=== PATIENT | female | born 1945 | race Caucasian/White ===

== ENCOUNTER 2019-09-11 15:33 | Inpatient (IN) | payer MEDICARE ==
[~2019-09-11] VITALS: Ht 165.1 cm; Wt 56.4 kg
[2019-09-11 16:51] LABS: BASOPHILS ABSOLUTE AUTO 0.06 K/mm3 (0.00-0.23); BASOPHILS PERCENT AUTO 1 % (0-2); EOSINOPHILS ABSOLUTE AUTO 0.02 K/mm3 (0.00-0.68); EOSINOPHILS PERCENT AUTO 0 % (0-6); Hematocrit 43.3 % (33.0-51.0); Hemoglobin 14.4 g/dL (11.5-16.0); IMMATURE GRAN ABSOLUTE AUTO 0.03 K/mm3 (0.00-0.10); IMMATURE GRAN PERCENT AUTO 0 % (0-1); LYMPHOCYTES ABSOLUTE AUTO 1.13 K/mm3 (0.84-5.20); LYMPHOCYTES PERCENT AUTO 12 % (21-46); MONOCYTES ABSOLUTE AUTO 0.98 K/mm3 (0.16-1.47); MONOCYTES PERCENT AUTO 10 % (4-13); Mean Corpuscular HGB 29.9 pg (26.0-34.0); Mean Corpuscular HGB Conc 33.3 g/dL (31.5-36.5); Mean Corpuscular Volume 90 fL (80-100); Mean Platelet Volume 9.1 fL (9.1-12.4); NEUTROPHILS ABSOLUTE AUTO 7.26 K/mm3 (1.96-9.15); NEUTROPHILS PERCENT AUTO 77 % (41-73); Platelet Count 574 K/mm3 (150-400); RDW Coefficient Variation 19.1 % (11.7-14.2); RDW Standard Deviation 60.2 fL (35.1-46.3); Red Blood Cell Count 4.81 M/mm3 (3.80-5.20); White Blood Cell Count 9.48 K/mm3 (4.00-11.30)
[2019-09-11 17:14] LABS: Alanine Aminotransfer (ALT/SGP 83 U/L (12-78); Albumin, Blood 2.5 g/dL (3.4-5.0); Albumin/Globulin Ratio 0.5 (0.8-1.8); Alk Phos 844 U/L (50-136); Anion Gap 11 mmol/L (6-16); Aspartate Aminotrans (AST/SGOT 405 U/L (12-37); Bilirubin, Total 2.1 mg/dL (0.1-1.0); Blood Urea Nitrogen 15 mg/dL (8-24); Bun/Creatinine Ratio 17.3 (12.0-20.0); CO2, Blood 22 mmol/L (21-32); Calcium, Blood 9.1 mg/dL (8.5-10.1); Chloride, Blood 103 mmol/L (98-108); Creatinine, Blood 0.87 mg/dL (0.40-1.00); Globulin, Blood 5.1 g/dL (2.2-4.0); Glomerular Filtration Rate >60 (60-); Glucose, Blood 105 mg/dL (70-99); Potassium, Blood 3.4 mmol/L (3.5-5.5); Sodium, Blood 136 mmol/L (136-145); Total Protein, Blood 7.6 g/dL (6.4-8.2)
[2019-09-11 20:10] LABS: Source, Urine Clean Catch
[2019-09-11 20:13] LABS: Bilirubin, Urine Neg (Neg); Blood, Urine 1+ (Neg); Glucose Qualitative, Urine Neg (Neg); Ketones, Urine Neg (Neg); Leukocyte Esterase, Urine 1+ (Neg); Nitrite, Urine Neg (Neg); Protein, Urine 1+ (Neg); Urobilinogen, Urine 2+ (Normal)
[2019-09-11 20:14] LABS: International Normalized Ratio 1.04; Prothrombin Time Results 11.1 Sec (9.7-11.5)
[2019-09-11 20:18] LABS: Appearance, Urine Hazy (Clear); Color, Urine Amber (P-Yellow)
[2019-09-11 20:19] LABS: Bacteria Few /hpf; Squamous Epithelial Cells Few /hpf (Few); White Blood Cells, Urine 25-50 /hpf (0-5)
[2019-09-11] MEDS ORDERED: IBUP600 PO (22:46)
--- NOTE | 2019-09-11 22:55 | NUR ---
PATIENT ARRIVED FROM ER VIA GURNEY, AWAKE AND ALERT ACCOMPANIED BY FAMILY, TRANSFERRED TO UNIT BED VIA SLIP SHEET BY 4 STAFF. HEART RATE TACHY AT 105, OTHERWISE ALL VITALS WNL. PATIENT IS MILDLY IRRITABLE, SHOWING VERBAL INTOLERANCE OF INTERVENTIONS, BUT ULTIMATELY COMPLIANT WITH ALL. PATIENT C/O MILD TO MODERATE PAIN TO ABDOMEN T/O SHIFT, AND WAS TREATED TO HER STATED RELIEF PER EMAR, AND UNIT PROTOCOL. WILL CONTINUE TO MONITOR AND PROVIDE CARE
[2019-09-12 03:50] LABS: BASOPHILS ABSOLUTE AUTO 0.07 K/mm3 (0.00-0.23); BASOPHILS PERCENT AUTO 1 % (0-2); EOSINOPHILS ABSOLUTE AUTO 0.05 K/mm3 (0.00-0.68); EOSINOPHILS PERCENT AUTO 1 % (0-6); Hematocrit 36.7 % (33.0-51.0); Hemoglobin 12.2 g/dL (11.5-16.0); IMMATURE GRAN ABSOLUTE AUTO 0.06 K/mm3 (0.00-0.10); IMMATURE GRAN PERCENT AUTO 1 % (0-1); LYMPHOCYTES ABSOLUTE AUTO 1.46 K/mm3 (0.84-5.20); LYMPHOCYTES PERCENT AUTO 15 % (21-46); MONOCYTES ABSOLUTE AUTO 1.37 K/mm3 (0.16-1.47); MONOCYTES PERCENT AUTO 14 % (4-13); Mean Corpuscular HGB 29.7 pg (26.0-34.0); Mean Corpuscular HGB Conc 33.2 g/dL (31.5-36.5); Mean Corpuscular Volume 89 fL (80-100); Mean Platelet Volume 8.9 fL (9.1-12.4); NEUTROPHILS ABSOLUTE AUTO 6.82 K/mm3 (1.96-9.15); NEUTROPHILS PERCENT AUTO 69 % (41-73); Platelet Count 503 K/mm3 (150-400); RDW Standard Deviation 60.2 fL (35.1-46.3); Red Blood Cell Count 4.11 M/mm3 (3.80-5.20); White Blood Cell Count 9.83 K/mm3 (4.00-11.30)
[2019-09-12 04:09] LABS: Alanine Aminotransfer (ALT/SGP 68 U/L (12-78); Albumin, Blood 2.1 g/dL (3.4-5.0); Albumin/Globulin Ratio 0.5 (0.8-1.8); Alk Phos 698 U/L (50-136); Anion Gap 9 mmol/L (6-16); Aspartate Aminotrans (AST/SGOT 325 U/L (12-37); Bilirubin, Total 1.5 mg/dL (0.1-1.0); Blood Urea Nitrogen 14 mg/dL (8-24); Bun/Creatinine Ratio 20.2 (12.0-20.0); CO2, Blood 21 mmol/L (21-32); Calcium, Blood 8.5 mg/dL (8.5-10.1); Chloride, Blood 106 mmol/L (98-108); Creatinine, Blood 0.69 mg/dL (0.40-1.00); Globulin, Blood 4.2 g/dL (2.2-4.0); Glomerular Filtration Rate >60 (60-); Glucose, Blood 89 mg/dL (70-99); Potassium, Blood 3.6 mmol/L (3.5-5.5); Sodium, Blood 136 mmol/L (136-145); Total Protein, Blood 6.3 g/dL (6.4-8.2)
--- NOTE | 2019-09-12 07:46 | NUR ---
SHIFT SUMMARY PATIENT C/O MILD/MODERATE DISCOMFORT "NOT NECESSARILY PAIN" A NUMBER OF TIMES T/O SHIFT, FOR WHICH SHE RECEIVED MEDICATION PER EMAR, STATING RELIEF EACH TIME. PATIENT'S ABDOMEN REMAINED FIRM, MILDLY DISTENDED, AND OFTEN TENDER TO TOUCH. VITAL SIGNS REMAINED STABLE AND WITHIN NORMAL LIMITS OUTSIDE OF HEART RATE TACHY IN 90'S. PATIENT DISPLAYED MILD CONFUSION AT TIMES, FORGETFUL OF EARLIER EDUCATION AND INSTRUCTION. CARE AND REPORT PASSED TO ONCOMING SHIFT AT 0700, PATIENT AWAKE AND ALERT IN BED, CALL LIGHT IN REACH, BED ALARM ON.
--- NOTE | 2019-09-12 07:49 | NUR ---
pt laying in bed awake, slow to respond, easily startled, appears frail, she is a/ox3, but forgetful, reports back discomfort that is not new, lungs are dim, with some scattered wheeze, is on r/a, resp even and unlabored, no cough noted, or reported, hrr, running sr per monitor, see strip, no edema noted, ppp+1, cap refill <3sec, vs stable, low grade temp at 99.0, but room is warm and she has several blankets, iv site is power glide to gissel, is clear and patent, btx4, abd round firm, she states nontender at this time, voids without diff, last bm yesterday, skin c/w/d, tab gregg, call light in reach.
--- NOTE | 2019-09-12 11:07 | NUR ---
went to hang abx, pt just starts getting oob, asked her to allow nurse to help her, she states she doesn't need a walker and is ok. she was unsteady holding the wall, asked her not to get up without assist and bed alarm is activated, call light in reach.
--- NOTE | 2019-09-12 17:46 | NUR ---
JUST MEDICATED PT WITH ROXICODONE SHE IS COMPLAINING ABOUT 7/10 BACK PAIN, DOESN'T WANT TO MOVE IT HURTS HER STOMACH, SHE WAS MEDICATED EARLIER FOR ABD PAIN WITH FENTANYL, SHE REPORTS THIS IS GONE. PT HAS A POOR APPETITE, BUT DID EAT SOME PUDDING THIS EVENING. NO FURTHER CHANGES, CALL LIGHT IN REACH.
--- NOTE | 2019-09-13 05:57 | NUR ---
SHIFT SUMMARY: PATIENT HAD INCREASING CONFUSION AND WEAKNESS THIS SHIFT. PATIENT VERY AGGITATED C/O STAFF NOT PAYING ATTENTION TO HER AND TAKING 'HOURS' ANSWERING HER CALL, PATIENT THEN STATED THAT SHE WAS TIRED OF STAFF WAKING HER UP AND 'COMING AND GOING AT ALL TIMES'. 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 PATIENT VERY WEAK AND SOB WALKING ASSISTED TO THE BATHROOM. BED LOW AND LOCKED WITH EXIT ALARM ON, CALL LIGHT WITHIN REACH.
--- NOTE | 2019-09-13 08:39 | NUR ---
AM NOTE... ASSUMED CARE OF PT APROX 0700, PT IS A&Ox4 WITH MOMENTS OF CONFUSION PER NOC SHIFT REPORT. CURRENTLY PT IS ON SITTNG ON THE SIDE OF THE BED EATING BREAKFAST. PT DENIES PAIN AT THIS TIME. NO EDEMA NOTED ON ASSESSMENT. L/S CLEAR T/O DIM IN THE BASES PT IS ON RA WITH O2 SATS AT 91%. RR IS 22-24. PT DENIES SOB. PT DENIES ABD PAIN AT THIS TIME. CALL LIGHT IN REACH, WILL CONTINUE TO MONITOR
--- NOTE | 2019-09-13 17:11 | NUR ---
SHIFT SUMMARY. PT HAS MOMENTS OF CONFUSION AND FORGETFULLNESS THIS SHIFT, PT PULLED OUT HER IV AND POWERGLIDE, TELE AND SET OFF THE BEDALARM. NEW IV ACCESS WAS OBTAINED AND HEPARIN GTT WAS RESTARTED. PHARMACY WAS AWARE OF THE STOP IN THE INFUSION. PT HAS HAD MOMENTS OF AGRESSION AND IRRITATION WITH STAFF. WHEN PT HAD SET OFF THE BEDALARM PT WAS TRYING TO WALK TO THE BATHROOM WITH OUT ASSISTANCE, THE PCT HELPED HER TO THE BATHROOM, PER THE PCT PT STARTED TO FALL BACKWARDS, PCT WAS ABLE TO CATCH HER BUT PT WAS VERY UNSTABLE ON HER FEET. PT'S VS HAVE BEEN STABLE T/O SHIFT. PT WAS MEDICATED FOR PAIN ONCE THIS SHIFT PER EMAR. PT WAS TAKEN FOR CT SCAN OF THE HEAD, REPORT IS AVAILABLE AT THIS TIME. CALL LIGHT IN REACH, BEDALARM IS ON, WILL CONTINUE TO MONITOR UNTIL REPORT IS GIVEN TO ONCOMING RN.
--- NOTE | 2019-09-14 02:19 | NUR ---
HEPARIN DRIP STOPPED AT 0000 PER MD ORDERS
--- NOTE | 2019-09-14 04:48 | NUR ---
SHIFT SUMMARY: -PATIENT NONCOMPLIANT WITH SOME MEDICATIONS AND CARE INTERMITTENTLY. -PATIENT PAIN INTERMITTENT AND WORSENING THROUGHOUT SHIFT IN LOWER BACK AND ABDOMEN, MEDICATED PER EMAR -PATIENT WEAKER THIS SHIFT, USING BEDSIDE COMMODE INSTEAD OF BATHROOM -VSS, CALL LIGHT WITHIN REACH, BED LWO AND LOCKED WITH BED EXIT ALARM ON D/T CONFUSION
--- NOTE | 2019-09-14 09:09 | NUR ---
AM NOTE... ASSUMED CARE OF PT APROX 0700. PT IS A&Ox4 WITH MOMENTS OF CONFUSION AND IRRATABILITY. CURRENTLY PT IS PLEASENT AND COOPERATIVE. PT IS NPO FOR CT/US GUIDED LIVER BX. PT'S VS STABLE. PT C/O ABD PAIN AND BACK PAIN. HEPARIN GTT WAS STOPPED AT 2400 PER NOC RN. BED ALARM IS ON WILL CONTINUE TO MONITOR.
--- NOTE | 2019-09-14 18:27 | NUR ---
SHIFT SUMMARY. NO ACUTE NEGATIVE CHANGES NOTED THIS SHIFT. PT HAS BEEN MEDICATED FOR PAIN PER EMAR. PT'S VS HAVE BEEN STABLE. PT'S HEPARIN GTT IS TO BE STOPPED AT 2359 FOR LIVER BX TOMORROW 09/15. PT IS TO HAVE ANGIO DONE ON 09/16 PER PROVIDER. CALL LIGHT IN REACH BED ALARM ON WILL CONTINUE TO MONITOR UNTIL REPORT IS GIVEN TO ONCOMING RN.
--- NOTE | 2019-09-15 04:22 | NUR ---
SHIFT SUMMARY ADMITTED FOR OCCLUSION OF SUPERIOR MESENTERIC ARTERY. FULL CODE. LIVER BIOPSY SCHEDULED FOR TODAY, ANGIOGRAM OF MESENTERIC ARTERY SCHEDULED FOR 09/16. PT HAS BEEN NPO SINCE 2400 HRS. HEPARIN INFUSION HAS BEEN STOPPED, ORDERED. PT IS 1 ASSIST TO BATHROOM, RA. PERIODS OF CONFUSION. SHE LIVES ALONE. POSSIBLE CANCER METASTASIS TO LIVER. HX: SMOKER, ETOH, DEMENTIA, HTN, COPD, MALNUTRITION, HYPOKALEMIA.
--- NOTE | 2019-09-15 13:50 | NUR ---
Permission for care given to nursing clinical director at 13:45 09/15/2019.
--- NOTE | 2019-09-15 14:10 | NUR ---
PATIENT HAS JUST VOIDED FOR THE FIRST TIME THIS SHIFT AND ONLY PUT OUT 100CC. NOTIFIED DR DALLAS AT 1405 AND GIVEN NEW ORDERS FOR 1L NS BOLUS.
--- NOTE | 2019-09-15 14:59 | NUR ---
Initial Visit: Consult recieved for advanced care planning due to new diagnosis. 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 She underwent liver biopsy today. She has had a consult for Dr. Mcgee for cancer treatment. She has chronic alcoholism and will need to abstain from alcohol if she desires treatment for her cancer. So far, she agrees to this. Pt now reports 5/10 pain. States that it has been as high as a 9/10. Pain is in her belly. She denies headache, ringing in her ears, dizziness. Denies shortness of breath and anxiety. Pt reports that she would like to remain a full code status. She states, "my kids aren't ready for me to yet." She is appointing her middle daughter, Augustin, as her alternate decision maker. Discussed advance directives. Reviewed form with her. She seems only vaguely interested in the document and tells me again, "my kids aren't ready for me to go." Pt is oriented to herself, and reports she believes she is in "[facility]." Reoriented to place. Pt has no concners at this time. Will remain available. Spoke to nurse, she states that the pt is very forgetful.
--- NOTE | 2019-09-15 15:56 | NUR ---
SHIFT SUMMARY THE PATIENT WAS NPO FROM MIDNIGHT LAST NIGHT UNTIL HER LIVER BIOPSY THIS AM. PATIENT HAD NOT VOIDED THIS SHIFT AT ALL UNTIL APPROX 1400 AND ONLY VOIDED 100CC. DR DALLAS NOTIFIED AND ORDERS GIVEN TO ADMINISTER A 1L NS BOLUS TO THE PATIENT. NS GIVEN. PATIENTS VITALS S/P BIOPSY HAVE BEEN STABLE. THE PATIENT IS ALERT AND ORIENTED TO SELF AND PLACE AND HAS CONFUSION AND FORGETFULNESS. PATIENT HAS CHRONIC PAIN TO HER ABDOMEN AND TAKES PAIN MEDICATION REQUESTED WITH SOME EFFECTIVENESS. ABDOMEN IS DISTENDED AND FIRM. PATIENT CONTINUES ON IV ABX WITHOUT S/SX OF ADVERSE REACTIONS NOTED OR REPORTED AT THIS TIME. WILL CONTINUE TO MONITOR AND PROVIDE CARE NEEDED.
--- NOTE | 2019-09-15 17:42 | NUR ---
Inital spiritual care note: Elizabeth was alone in room and rather withdrawn. She is listed as Pentecostalism, but has not been active. She could not remember if Father Cong had been to see her today. "My memory is not good" she told me. She states that she is awaiting test results to determine POC. She did not mention cancer. She took long pauses between sentances and seemed to have trouble following conversation. She allowed me to pray for her, but she did not engage. I will remain available to pt and family.
--- NOTE | 2019-09-16 04:43 | NUR ---
SHIFT SUMMARY ADMITTED FOR OCCLUSION OF SUPERIOR MESSENTERIC ARTERY. FULL CODE. LIVER BIOPSY COMPLETED YESTERDAY. HOLDING HEPARIN/BLOOD THINNERS ORDERED. 1 ASSIST TO BATHROOM. CONFUSED. RA. WAS GIVEN HANDOFF REPORT THAT A PROCEDURE WOULD TAKE PLACE TODAY (ANGIOGRAM, MESSENTERIC ARTERY, DR GRANDE), BUT HE HAS NOT CONSULTED AND I HAVE NOT FOUND ANY ORDERS. TO BE SAFE I KEPT PT NPO SINCE MIDNIGHT. I WILL PASS THIS ISSUE TO DAY SHIFT NURSE TO CLEAR UP WITH DAY HOSPITALIST.
[2019-09-16 05:49] LABS: BASOPHILS ABSOLUTE AUTO 0.05 K/mm3 (0.00-0.23); BASOPHILS PERCENT AUTO 1 % (0-2); EOSINOPHILS ABSOLUTE AUTO 0.03 K/mm3 (0.00-0.68); EOSINOPHILS PERCENT AUTO 0 % (0-6); Hematocrit 34.3 % (33.0-51.0); IMMATURE GRAN ABSOLUTE AUTO 0.04 K/mm3 (0.00-0.10); IMMATURE GRAN PERCENT AUTO 1 % (0-1); LYMPHOCYTES ABSOLUTE AUTO 1.03 K/mm3 (0.84-5.20); LYMPHOCYTES PERCENT AUTO 14 % (21-46); MONOCYTES ABSOLUTE AUTO 1.22 K/mm3 (0.16-1.47); MONOCYTES PERCENT AUTO 16 % (4-13); Mean Corpuscular HGB 29.8 pg (26.0-34.0); Mean Corpuscular HGB Conc 32.1 g/dL (31.5-36.5); NEUTROPHILS ABSOLUTE AUTO 5.26 K/mm3 (1.96-9.15); NEUTROPHILS PERCENT AUTO 69 % (41-73); Platelet Count 463 K/mm3 (150-400); RDW Coefficient Variation 19.3 % (11.7-14.2); RDW Standard Deviation 63.7 fL (35.1-46.3); Red Blood Cell Count 3.69 M/mm3 (3.80-5.20); White Blood Cell Count 7.63 K/mm3 (4.00-11.30)
[2019-09-16 05:54] LABS: Mean Corpuscular Volume 93 fL (80-100)
[2019-09-16 06:02] LABS: Anion Gap 9 mmol/L (6-16); Blood Urea Nitrogen 11 mg/dL (8-24); Bun/Creatinine Ratio 20.1 (12.0-20.0); CO2, Blood 20 mmol/L (21-32); Calcium, Blood 8.4 mg/dL (8.5-10.1); Chloride, Blood 108 mmol/L (98-108); Creatinine, Blood 0.55 mg/dL (0.40-1.00); Glomerular Filtration Rate >60 (60-); Glucose, Blood 62 mg/dL (70-99); Sodium, Blood 137 mmol/L (136-145)
--- NOTE | 2019-09-16 07:28 | NUR ---
PT TO [facility] FOR ANGIO. DR DALLAS NOTIFIED AND DAUGHTERS NOTIFIED. [facility] NOTIFIED THAT PT HAS BEEN OFF HEPARIN DUE TO LIVER BIOPSY YEST.
--- NOTE | 2019-09-16 09:53 | NUR ---
report called to Nahed in PCU. belongings taken to room.
--- NOTE | 2019-09-16 13:48 | NUR ---
Pt. is lying in bed resting offered prayers.
--- NOTE | 2019-09-16 14:16 | NUR ---
Patient is lying in bed and alert. Patient tells me that she has had much pain in her abdomin and back. Patient shares about her family, about how she used to be [employer], and about how she is waiting on results from tests. I ask patient if it would be alright if I pray for her and patient affirms that she would like that. Patient agrees in prayer more like a adventist but at least I know that I am on track with her thoguhts. After I pray patient tells me that she appreciates that prayer because her condition is terminal. I ask if that is what her doctor said and she says, "I just know that I am dying." I try to establish therapeutic alliance, I listen empathically, provide companionship and prayer. Patient responds well and voices appreciation for the visit.
--- NOTE | 2019-09-16 18:46 | NUR ---
SHIFT NOTE PT ARRIVED FROM [facility] AFTER STENOSIS OF MESENTERIC ARTERY WAS NOT ABLE TO RADHA RESOLVED. CHG TEGADERM IN PLACE OVE PUNCTURE SITE, NO ACTIVE BLEEDING, SITE IS SOFT AND PALPABLE. PT HAS BEEN CONFUSED, DOES ANSWER SOME QUESTIONS APPROPRIATELY BUT MOST ARE NOT. PT ALERT, WAKES TO VERBAL STIMULI. HAS COMPLAINED OF BACK PAIN WHICH WAS TREATED WITH ROXICODONE WHICH PT TOELRATED WELL. VSS T/O RECOVERY. PT IS RESTING WELL IN BED, APPEARS TO BE SLEEPING EVEN CHEST RISE AND FALL NOTED
[2019-09-17 04:08] LABS: BASOPHILS ABSOLUTE AUTO 0.04 K/mm3 (0.00-0.23); BASOPHILS PERCENT AUTO 0 % (0-2); EOSINOPHILS PERCENT AUTO 0 % (0-6); Hematocrit 37.7 % (33.0-51.0); IMMATURE GRAN ABSOLUTE AUTO 0.06 K/mm3 (0.00-0.10); IMMATURE GRAN PERCENT AUTO 1 % (0-1); LYMPHOCYTES ABSOLUTE AUTO 1.06 K/mm3 (0.84-5.20); LYMPHOCYTES PERCENT AUTO 10 % (21-46); MONOCYTES ABSOLUTE AUTO 1.61 K/mm3 (0.16-1.47); MONOCYTES PERCENT AUTO 16 % (4-13); Mean Corpuscular HGB 29.7 pg (26.0-34.0); Mean Corpuscular HGB Conc 31.8 g/dL (31.5-36.5); Mean Corpuscular Volume 93 fL (80-100); Mean Platelet Volume 8.9 fL (9.1-12.4); NEUTROPHILS ABSOLUTE AUTO 7.52 K/mm3 (1.96-9.15); NEUTROPHILS PERCENT AUTO 73 % (41-73); Platelet Count 520 K/mm3 (150-400); RDW Coefficient Variation 20.1 % (11.7-14.2); RDW Standard Deviation 67.5 fL (35.1-46.3); Red Blood Cell Count 4.04 M/mm3 (3.80-5.20); White Blood Cell Count 10.29 K/mm3 (4.00-11.30)
[2019-09-17 04:26] LABS: Anion Gap 14 mmol/L (6-16); Blood Urea Nitrogen 16 mg/dL (8-24); Bun/Creatinine Ratio 21.9 (12.0-20.0); CO2, Blood 16 mmol/L (21-32); Calcium, Blood 9.1 mg/dL (8.5-10.1); Chloride, Blood 106 mmol/L (98-108); Creatinine, Blood 0.73 mg/dL (0.40-1.00); Glomerular Filtration Rate >60 (60-); Glucose, Blood 81 mg/dL (70-99); Potassium, Blood 4.9 mmol/L (3.5-5.5); Sodium, Blood 136 mmol/L (136-145)
--- NOTE | 2019-09-17 06:26 | NUR ---
PT CONFUSED. WITH SHORT TERM MEMORY LOSS. C/O OF STOMACH PAIN CONTROLLED WITH OXYCODONE. PT HAD ONE BM. PT WOKE UP AND SAT ON EDGE OF BED ASKING WHERE ALL THE SMOKE WAS COMING FROM. I ASSURED THERE WAS NO SMOKE AND SHE WANTED TO LAY BACK DOWN. SHE SLEPT THE REST OF THE NIGHT. VITAL WNL. PENDING ANGIO IN THE AM.
--- NOTE | 2019-09-17 11:20 | NUR ---
[facility] CALLED WITH ETA FOR PROCEDURE, THEY WILL RETURN CALL WHEN TIME AVAILABLE
--- NOTE | 2019-09-17 11:48 | NUR ---
Pt. in bed resting ,offered prayers for pt.
--- NOTE | 2019-09-17 12:25 | NUR ---
PT'S DAUGHTER SHANNON IS UPDATED ON PT'S STATUS.
--- NOTE | 2019-09-17 13:08 | NUR ---
PT RESTING IN POSTION OF COMFORT.
--- NOTE | 2019-09-17 13:44 | NUR ---
DR GRANDE HERE TO NOTIFY STAFF THAT PT WILL BE GOING TO [facility] SOON.
--- NOTE | 2019-09-17 14:19 | NUR ---
PT TO [facility] WITH CREW. PT'S DAUGHTER SHANNONSeth SHEPHERD
--- NOTE | 2019-09-17 17:46 | NUR ---
PT REPORTS CONTINUED PAIN TO BACK SHE HAS BEEN COMPLAINING OF DUSRING EYSTERDAY'S SHIFT. PT IS MEDICATED FOR PAIN, NS INFUSING PER ORDERS FROM DR GRANDE. PT REPORTED SOME NAUSEA WAS ALSO TREATED WITH ZOFRAN. PT RETURNED FROM [facility] WITH TR BAND TO LT BRACHIAL, WITH 7ML AIR IN TR BAND, THERE IS NO ACTIVE BLEEDING UPON ARRIVAL BACK TO PCU. PT IS CONFUSED BUT NOT ATTEMPTING TO PULL AT LINES. ATTENDS WERE CHANGED UPON ARRIVAL FROM [facility]. PT REPORTS SENSATION TO LT HAND, MOVES FINGERS ON COMMAND. RADIAL PULSES ARE FAINT BILAT, BUT IS NOT A CHANGE FROM THIS AM PRIOR TO LEAVING FOR [facility].
--- NOTE | 2019-09-17 17:50 | NUR ---
SHIFT NOTE PT WAS NPO T/O THE DAY SHE WAS LEAVING FOR [facility] FOR PROCEDURE. PT HAS SLEEP MOST OF THE DAY, DID NOT COMPLAIN OF BACK PAIN PRIOR TO LEAVING FOR [facility] THAT SHE HAD BEEN COMPLAINING OF YESTERDAY WHEN THIS RN ASSUMED CARE. ORAL CARE WAS PROVIDED T/O THE DAY. PT RETURNED FROM [facility] WITH TR BAND TO LT BRACHIAL, NO ACTIVE BLEEDING IS NOTED, TR BAND IS CONCEALED, PT IS NOT ATTEMPTING TO PULL AT IT BUT HAS HX OF REMOVING LINES SHE STILL REMAINS CONFUSED THE TR BAND WAS CONCEALED. PT COMPLAINS THAT BACK PAIN HAS RETURNED WHEN SHE ARRIVED FROM [facility], PT WAS MEDICATED FOR PAIN. PT NOW WITH HTN THAT WAS NOT NOTED PRIOR TO LEAVING FOR [facility], [place] MONITOR PRESSURE TO SEE IF PRESSURE TRENDS DOWN WITH PAIN.
--- NOTE | 2019-09-17 18:59 | NUR ---
Spoke with Dr. Mascorro at this time, clarified that he does not want the pt on a heparin drip, nor does he want the pt to be on anticoagulation oral medications. Heparin was dc'd
[2019-09-18 03:55] LABS: BASOPHILS ABSOLUTE AUTO 0.03 K/mm3 (0.00-0.23); BASOPHILS PERCENT AUTO 0 % (0-2); EOSINOPHILS PERCENT AUTO 0 % (0-6); Hematocrit 35.5 % (33.0-51.0); Hemoglobin 11.5 g/dL (11.5-16.0); IMMATURE GRAN ABSOLUTE AUTO 0.09 K/mm3 (0.00-0.10); IMMATURE GRAN PERCENT AUTO 1 % (0-1); LYMPHOCYTES ABSOLUTE AUTO 0.62 K/mm3 (0.84-5.20); LYMPHOCYTES PERCENT AUTO 5 % (21-46); MONOCYTES ABSOLUTE AUTO 1.53 K/mm3 (0.16-1.47); MONOCYTES PERCENT AUTO 13 % (4-13); Mean Corpuscular HGB 30.2 pg (26.0-34.0); Mean Corpuscular HGB Conc 32.4 g/dL (31.5-36.5); Mean Corpuscular Volume 93 fL (80-100); Mean Platelet Volume 8.9 fL (9.1-12.4); NEUTROPHILS ABSOLUTE AUTO 9.58 K/mm3 (1.96-9.15); NEUTROPHILS PERCENT AUTO 81 % (41-73); Platelet Count 544 K/mm3 (150-400); RDW Coefficient Variation 20.6 % (11.7-14.2); RDW Standard Deviation 67.6 fL (35.1-46.3); Red Blood Cell Count 3.81 M/mm3 (3.80-5.20); White Blood Cell Count 11.85 K/mm3 (4.00-11.30)
[2019-09-18 04:09] LABS: Anion Gap 15 mmol/L (6-16); Blood Urea Nitrogen 22 mg/dL (8-24); Bun/Creatinine Ratio 27.4 (12.0-20.0); CO2, Blood 15 mmol/L (21-32); Calcium, Blood 8.6 mg/dL (8.5-10.1); Chloride, Blood 108 mmol/L (98-108); Glomerular Filtration Rate >60 (60-); Glucose, Blood 116 mg/dL (70-99); Potassium, Blood 4.8 mmol/L (3.5-5.5); Sodium, Blood 138 mmol/L (136-145)
--- NOTE | 2019-09-18 05:22 | NUR ---
PCU NOC SHIFT SUMMARY PATIENT REMAIN LETHARGIC T/O SHIFT. PATIENT HAS BLANK FORWARD GAZE. PATIENT DOES ANSWER SOME QUESTION WITH LONG PAUSES IN BETWEEN WORDS AND ANSWERS. PATIENT REPORTED ABD PAIN AT THE BEGINNING OF THE SHIFT THAT RELIEVED WITH MEDICATION PER EMAR. 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 PATIENT REMAINS ON ROOM AIR T/O SHIFT. PATIENT DID BECOME HYPERTENSIVE AND TACHY - RADAMES, PROVIDER, CALLED - PATIENT MEDICATED PER NEW ORDER AND RESOLVED. PATIENT DENIES ANY NEEDS AT THIS TIME. HOB ELEVATED TO 45 DEGREES. WILL CONTINUE TO MONITOR AND REPORT TO DAYSHIFT RN.
[2019-09-18] MEDS ORDERED: NICO21TP TOP (10:16)
[2019-09-18] MEDS ORDERED: DOCU100 PO (10:16)
[2019-09-18] MEDS ORDERED: BENADRYL25 M1 PO (10:16)
[2019-09-18] MEDS ORDERED: ROXICODONE5 MG PO (10:17)
--- NOTE | 2019-09-18 15:54 | NUR ---
DISCHARGE DR. DALLAS IN WITH DISCHARGE ORDERS. DAUGHTER CALLED IN TO COORDINATE DISCHARGE. DISCHARGE INSTRUCTIONS PROVIDED TO PT AND DAUGHTER. HOME HEALTH REFERRAL PLACED. EDUCATION PROVIDED TO PT AND DAUGHTER ABOUT MEDICATIONS AND FOLLOW-UP APPTS. PT TAKEN OUT BY WHEELCHAIR.
== END 2019-09-18 15:53 | disposition home health service (06) | DRG 357 ==
LOC: ER 15:33 → PCU 22:13 → MEDS 09-14 18:38 → PCU 09-16 09:33
PROVIDERS: Internal Medicine; Nurse Practitioner Acute Care; Physician Assistant; ADMIT Internal Medicine
PROC: 04753ZZ Dilation of Superior Mesenteric Artery, Percutaneous Approach (ICD-10-PCS; principal; 2019-09-17)
DX: K55.069 Acute infarction of intestine, part and extent unspecified (principal); E46 Unspecified protein-calorie malnutrition; F17.213 Nicotine dependence, cigarettes, with withdrawal; C78.7 Secondary malignant neoplasm of liver and intrahepatic bile duct; F17.210 Nicotine dependence, cigarettes, uncomplicated; E87.6 Hypokalemia; J44.9 Chronic obstructive pulmonary disease, unspecified; D49.1 Neoplasm of unspecified behavior of respiratory system
CPT/HCPCS: 36245; 36247; 36415; 37246; 47000; 70470; 71046; 71260; 74150; 74177; 75605; 75726; 76937; 77012; 80048; 80053; 81001; 83690; 84484; 85025; 85610; 85730; 87086; 88307; 88341; 88342; 93005; 93010; 96361; 96365-59; 96366; 96375-59; 99152; 99153; 99285-25; C1725; C1751; C1760; C1769; C1887; C1894; J0696; J1200; J1644; J2250; J2405; J3010; J3480; J7030; J7040; J7050; Q9967